=== PATIENT | female | born 1935 | race Caucasian/White ===

== ENCOUNTER 2019-06-29 12:38 | Outpatient (CLI) | payer MEDICARE, SELFPAY ==
[2019-06-29 13:31] LABS: Blood Urea Nitrogen 19 mg/dL (7-17); Calcium 9.3 mg/dL (8.4-10.2); Carbon Dioxide 30 mmol/L (22-30); Chloride 99 mmol/L (98-107); Cholesterol 205 mg/dL (0-200); Estimated Glomerular Filt Rate > 60; Glucose 95 mg/dL (65-105); HDL Direct 56 mg/dL; Potassium 4.3 mmol/L (3.4-5.0); Sodium 137 mmol/L (137-145); Triglycerides 124 mg/dL (<150)
[2019-06-29 13:42] LABS: LDL Cholesterol Direct 119 mg/dL
== END 2019-06-29 12:39 | disposition home or self-care (01) ==
PROVIDERS: PCP Internal Medicine; Visit Provider Internal Medicine
DX: I12.9 Hypertensive chronic kidney disease with stage 1 through stage 4 chronic kidney disease, or unspecified chronic kidney disease (principal); N18.3 Chronic kidney disease, stage 3 (moderate); E78.5 Hyperlipidemia, unspecified
CPT/HCPCS: 36415; 80048; 80061

== ENCOUNTER 2020-12-26 10:34 | Outpatient (CLI) | payer MEDICARE, SELFPAY ==
[2020-12-26 11:40] LABS: Alanine Aminotransferase 20 U/L (4-35); Albumin Level 3.8 g/dL (3.5-5.1); Alkaline Phosphatase 63 U/L (38-126); Anion Gap 5 mmol/L (8-16); Aspartate Amino Transferase 25 U/L (14-36); Blood Urea Nitrogen 18 mg/dL (7-17); Calcium 9.4 mg/dL (8.4-10.2); Carbon Dioxide 26 mmol/L (22-30); Chloride 106 mmol/L (98-107); Cholesterol 199 mg/dL (0-200); Estimated Glomerular Filt Rate 60; Glucose 102 mg/dL (65-110); HDL Direct 59 mg/dL; Potassium 4.3 mmol/L (3.4-5.0); Sodium 137 mmol/L (137-145); Triglycerides 112 mg/dL (<150)
[2020-12-26 11:51] LABS: LDL Cholesterol Direct 99 mg/dL
[2020-12-26 12:48] LABS: Vitamin D 25 Hydroxy 53.2 ng/mL
== END 2020-12-26 10:35 | disposition home or self-care (01) ==
LOC: ANHLAB 10:38
PROVIDERS: PCP Internal Medicine; Visit Provider Nurse Practitioner
DX: N18.30 Chronic kidney disease, stage 3 unspecified (principal); E78.5 Hyperlipidemia, unspecified; E55.9 Vitamin D deficiency, unspecified
CPT/HCPCS: 36415; 80053; 80061; 82306

== ENCOUNTER 2021-07-17 09:15 | Outpatient (CLI) | payer MEDICARE, SELFPAY ==
--- NOTE | ~2021-07-17 | XR_ITS ---
XR shoulder RT min 2V DATE: 07/17/2021 09:41 INDICATION: Right shoulder pain, limited range of motion TECHNIQUE: 4 views COMPARISON: None FINDINGS: There is prominent degenerative spurring at the, clavicular joint. There is prominent osteoarthritic change including spurring at the glenohumeral joint. The humeral head abuts the undersurface of the acromion process, consistent with rotator cuff atrophy and/or tear. Diffuse osteopenia. No fracture or dislocation, periosteal reaction or bone destruction. IMPRESSION: Severe degenerative change at the acromioclavicular and glenohumeral joints Right rotator cuff severe atrophy and/or tear Reviewed, dictated and finalized at location A. IMPRESSION: Severe degenerative change at the acromioclavicular and glenohumera l joints Right rotator cuff severe atrophy and/or tear
== END 2021-07-17 09:16 | disposition home or self-care (01) ==
PROVIDERS: PCP Internal Medicine; Visit Provider Internal Medicine
DX: M19.011 Primary osteoarthritis, right shoulder (principal); M75.101 Unspecified rotator cuff tear or rupture of right shoulder, not specified as traumatic
CPT/HCPCS: 73030

== ENCOUNTER 2021-09-03 09:00 | Outpatient (RCR) | payer MEDICARE, SELFPAY ==
[2021-07-22 12:34] VITALS: BP_SYST 96
--- NOTE | 2021-07-22 13:29 | PTOPEVAL ---
PHYSICAL THERAPY INITIAL EVALUATION. Thank you for referring Caro Meyers to [facility].? The patient is scheduled to be seen for therapy? 2x/week for 6 weeks. Please review, sign, date and return this plan of care OLGA. I agree with and certify that the following plan of care is medically necessary. Referring Physician Date Attending Provider: Arnav Díaz DO *PT Outpatient Evaluation Start: 07/22/21 Evaluation Information Diagnosis Right shoulder pain Subjective Information Pt states she has been having Query Text:As Reported By Patient/ some shoulder pain for about 6 Family -12 months. She declines a mechanism of injury. She states she enjoys needle work and painting. Pt declines pain in the shoulder, she states it just does not move the way that it shoulder. Pain Assessment Pain Score 0: Self Report Upper Extremity Range of Motion Scapular/ Shoulder Range of Motion Right Shoulder Flexion - Active 92 Shoulder Flexion - Passive 132 Shoulder Abduction - Active 81 Shoulder Abduction - Passive 96 Shoulder Medial Rotation - Passive 22 Shoulder Medial Rotation - Active R - L5 *pain reported Query Text:Reach Behind the Back L - T8 Shoulder Lateral Rotation - Passive 55 Shoulder Lateral Rotation - Active R - T1 Query Text:Reach Behind the Head L - T4 Scapular/Shoulder Range of Motion L shoulder active flexion 132 Comments L shoulder active abduction 130 passive rotation measure near 90 deg of shoulder abd Upper Extremity Muscle Strength Testing General Upper Extremity Strength L UE grossly 4- to 4/5 Scapular/Shoulder Right Shoulder Flexion Strength 4- Good - Shoulder Abduction Strength 3+ Fair + Shoulder Medial Rotation Strength 3+ Fair + Shoulder Lateral Rotation Strength 3+ Fair + Posture Shoulder Posture (R) Rounded,(R) Forward Palpation Assessment Palpation multiple pops felt during passive ROM, no increase in pain during PT Clinical Summary Caro is an active 85 y/o female who presents to therapy today with a diagnosis of R shoulder pain. Today she declines pain but reports stiffness and limitations with movement. She demonstrates decreased active ROM and strength when compared to her uninvolved side, she has
[2021-09-03 09:03] VITALS: BP_SYST 112
--- NOTE | 2021-09-03 09:42 | PTOPEVAL ---
PHYSICAL THERAPY PROGRESS REPORT AND DISCHARGE SUMMARY. Thank you for referring Caro Meyers to [facility].? The patient is scheduled to be discharged from therapy at this time. Please review, sign, date and return this plan of care OLGA. I agree with and certify that the following plan of care is medically necessary. Referring Physician Date Admitting Provider: Attending Provider: Arnav Díaz DO Assessment Status Discharge Evaluation Information Diagnosis Right shoulder pain Subjective Information Pt states her shoulder is Query Text:As Reported By Patient/ feeling good, but not perfect. Family Pt states she still has a little difficulty putting her curlers in her hair. Pt reports 50% improvement in overall symptoms, she states at her age who can expect to be normal. Pain Assessment Pain Score 0: Self Report Scapular/ Shoulder Range of Motion Right Shoulder Flexion - Active 102 Shoulder Flexion - Passive 144 Shoulder Abduction - Active 85 Shoulder Abduction - Passive 112 Shoulder Medial Rotation - Passive 50 Shoulder Medial Rotation - Active R - L2 *pain reported Query Text:Reach Behind the Back L - T8 Shoulder Lateral Rotation - Passive 65 Shoulder Lateral Rotation - Active R - T2 Query Text:Reach Behind the Head L - T4 Scapular/Shoulder Range of Motion L shoulder active flexion 132 Comments L shoulder active abduction 130 passive rotation measure near 90 deg of shoulder abd Upper Extremity Muscle Strength Testing Gross Upper Extremity Strength Comments L UE grossly 4- to 4/5 Scapular/Shoulder Right Shoulder Flexion Strength 4- Good - Shoulder Abduction Strength 3+ Fair + Shoulder Medial Rotation Strength 3+ Fair + Shoulder Lateral Rotation Strength 3+ Fair + Posture Posture Evaluation View Anterior Shoulder Posture (R) Rounded,(R) Forward Palpation Assessment Palpation multiple pops felt during passive ROM, no increase in pain during PT Clinical Summary Caro is an active 85 y/o female who presents to therapy today for a progress report following 8 visits of therapy to treat her R shoulder pain. Today she demonstrates mild improvements in her R shoulder strength and range of motion. She continues to lack range of motion and strength when
== END 2021-09-03 16:19 | disposition home or self-care (01) ==
LOC: ANHPT 09:00
PROVIDERS: PCP Internal Medicine; Visit Provider Internal Medicine
DX: M25.511 Pain in right shoulder (principal)
CPT/HCPCS: 97110; 97112; 97140; 97161

== ENCOUNTER 2022-03-05 13:28 | Outpatient (CLI) | payer MEDICARE, SELFPAY ==
[2022-03-05 14:33] LABS: Alanine Aminotransferase 21 U/L (6-35); Albumin Level 4.2 g/dL (3.5-5.1); Alkaline Phosphatase 84 U/L (38-126); Anion Gap 11 mmol/L (8-16); Aspartate Amino Transferase 27 U/L (14-36); Bilirubin,Total 0.6 mg/dL (0.2-1.3); Blood Urea Nitrogen 22 mg/dL (7-17); Calcium 9.6 mg/dL (8.4-10.2); Carbon Dioxide 30 mmol/L (22-30); Chloride 99 mmol/L (98-107); Estimated Glomerular Filt Rate 59; Glucose 106 mg/dL (65-110); Potassium 4.1 mmol/L (3.4-5.0); Sodium 140 mmol/L (137-145)
[2022-03-05 14:41] LABS: Vitamin D 25 Hydroxy 54.1 ng/mL
== END 2022-03-05 13:29 | disposition home or self-care (01) ==
PROVIDERS: PCP Internal Medicine; Visit Provider Internal Medicine
DX: E55.9 Vitamin D deficiency, unspecified (principal); I10 Essential (primary) hypertension
CPT/HCPCS: 36415; 80053; 82306

== ENCOUNTER 2022-09-10 13:36 | Outpatient (CLI) | payer MEDICARE, SELFPAY ==
[2022-09-10 14:40] LABS: Alanine Aminotransferase 20 U/L (6-35); Albumin Level 4.1 g/dL (3.5-5.1); Alkaline Phosphatase 85 U/L (38-126); Anion Gap 2 mmol/L (8-16); Aspartate Amino Transferase 24 U/L (14-36); Bilirubin,Total 0.8 mg/dL (0.2-1.3); Blood Urea Nitrogen 17 mg/dL (7-17); Calcium 8.9 mg/dL (8.4-10.2); Carbon Dioxide 33 mmol/L (22-30); Chloride 101 mmol/L (98-107); Cholesterol 186 mg/dL (0-200); Estimated Glomerular Filt Rate > 60; Glucose 111 mg/dL (65-110); HDL Direct 62 mg/dL; Potassium 4.3 mmol/L (3.4-5.0); Sodium 136 mmol/L (137-145); Triglycerides 178 mg/dL (<150)
[2022-09-10 14:51] LABS: LDL Cholesterol Direct 96 mg/dL
[2022-09-10 15:11] LABS: Vitamin D 25 Hydroxy 80.2 ng/mL
== END 2022-09-10 13:37 | disposition home or self-care (01) ==
LOC: ANHLAB 13:38
PROVIDERS: PCP Family Medicine; Visit Provider Nurse Practitioner
DX: I10 Essential (primary) hypertension (principal); Z51.81 Encounter for therapeutic drug level monitoring; E78.5 Hyperlipidemia, unspecified; E55.9 Vitamin D deficiency, unspecified
CPT/HCPCS: 36415; 80053; 80061; 82306

== ENCOUNTER 2022-11-04 19:35 | Emergency (ER) | payer MEDICARE, SELFPAY ==
--- NOTE | ~2022-11-04 | XR_ITS ---
EXAMINATION: XR chest 1V portable Exam Date/Time: 11/04/2022 20:17 CDT HISTORY: weakness, HTN Comparison: 08/10/2018. RESULT: Lines, tubes, and devices: None. Lungs and pleura: Senescent changes, calcified granulomas, bibasilar scar/atelectasis, otherwise neelima ar. Cardiomediastinal silhouette: Stable. Other: No acute osseous or upper abdominal finding. IMPRESSION: No acute cardiopulmonary process. Reviewed, dictated and finalized at location K.
--- NOTE | 2022-11-04 20:12 | ECG_ITS ---
Measurements Intervals [place] Rate: 84 P: 48 CT: 220 QRS: 34 QRSD: 90 T: 48 QT: 360 QTc: 426 Interpretive Statements SINUS RHYTHM WITH FIRST DEGREE AV BLOCK POSSIBLE LEFT ATRIAL ENLARGEMENT CANNOT RULE OUT SEPTAL INFARCT, AGE INDETERMINATE BASELINE ARTIFACT- III, AVR, AVF, V1 ABNORMAL ECG COMPARED TO ECG 08/10/2018 22:22:33 NO SIGNIFICANT CHANGES Electronically Signed On 11-04-2022 21:07:08 CDT by Trevor Valle D.O.
[2022-11-04] MEDS: SODIUM CHLORIDE 0.9% IV 1,000 ML 999 ML IV CONT (20:18)
[2022-11-04 20:41] LABS: Basophils Percent Auto 0.4 % (0.2-1.2); Eosinophils Absolute Auto 0.1 K/mm3 (0-0.3); Eosinophils Percent Auto 1.2 % (0-4.4); Hematocrit 40.2 % (37.0-47.0); Hemoglobin 13.4 g/dL (12.0-15.0); Immature Granulocyte Absolute 0.03 K/mm3 (0.00-0.031); Immature Granulocyte Percent A 0.4 % (0-0.5); Lymphocytes Absolute Auto 1.11 K/mm3 (0.9-3.2); Lymphocytes Percent Auto 13.2 % (18.3-44.2); Mean Corpuscular HGB Conc 33.3 g/dl (32-36); Mean Corpuscular Hemoglobin 31.8 pg (26-34); Mean Corpuscular Volume 95.3 fl (80-100); Mean Platelet Volume 9.1 fl (7.4-10.4); Monocytes Absolute Auto 0.8 K/mm3 (0.1-0.6); Monocytes Percent Auto 9.2 % (2.6-8.5); Neutrophils Absolute Auto 6.4 K/mm3 (1.3-6.7); Neutrophils Percent Auto 75.6 % (45.5-73.1); Platelet Count Result 231 k/mm3 (150-375); Red Blood Count 4.22 M/mm3 (4.2-5.4); Red Cell Distribution Width 13.2 % (11.5-14.5); White Blood Count 8.4 K/mm3 (4.5-10.0)
[2022-11-04 21:05] LABS: Appearance Urine Cloudy (Clear); Bacteria Urine 4+ /hpf; Bilirubin Urine Negative (Negative); Blood Urine Negative (Negative); Color Urine Yellow (Yellow); Glucose Urine UA Negative (Negative); Ketones Urine Negative (Negative); Leukocyte Esterase Ur 3+ LEU/UL (Negative); Nitrate Urine Positive (Negative); Non Pathogenic Casts 0-2; Protein Urine 1+ mg/dL (Negative); RBC Urine 0-2 /hpf (0-2); Specific Grav Ur 1.011 (1.001-1.035); Squamous Epithelial Cell Urine None seen /hpf (Few); Urobilinogen Urine 0.2 mg/dL (<2.0); pH Urine 6.5 (5.0-9.0)
[2022-11-04 21:06] LABS: Alanine Aminotransferase 23 U/L (6-35); Alkaline Phosphatase 86 U/L (38-126); Anion Gap 10 mmol/L (8-16); Aspartate Amino Transferase 29 U/L (14-36); Bilirubin,Total 0.7 mg/dL (0.2-1.3); Blood Urea Nitrogen 19 mg/dL (7-17); Calcium 9.2 mg/dL (8.4-10.2); Carbon Dioxide 26 mmol/L (22-30); Chloride 100 mmol/L (98-107); Estimated CRCL calculation 28 ml/min; Estimated Glomerular Filt Rate 59; Glucose 144 mg/dL (65-110); Magnesium 1.9 mg/dL (1.6-2.3); Sodium 136 mmol/L (137-145); Troponin I < 0.012 ng/mL (0.000-0.034)
[2022-11-04 21:14] LABS: Add Urine Microscopic? YES
--- NOTE | 2022-11-04 22:18 | ED.GENADULT ---
HPI - General Adult General Chief complaint: Weakness Stated complaint: GENERALIZED WEAKNESS Time Seen by Provider: 11/04/22 19:59 History of Present Illness HPI narrative: Is a 86-year-old female who presents the emergency department chief complaint of generalized weakness. Patient was sent in after she had had some ground-level falls and was little less steady on her feet. The patient currently has no complaints reports she is able to ambulate without difficulty denies chest pain or shortness of breath or denies fever. Related Data Home Medications Medication Instructions Recorded Confirmed aspirin 325 mg tablet 325 mg PO DAILY 06/20/19 09/10/22 calcium carbonate 600 mg calcium 600 mg PO BID 06/21/19 09/10/22 (1,500 mg) tablet (Calcium) glucosamine sulfate 500 mg tablet 500 mg PO BID 06/21/19 09/10/22 (Glucosamine) omega-3 fatty acids 1,000 mg 1,000 mg PO BID 06/21/19 09/10/22 capsule (Fish Oil Concentrate) cholecalciferol (vitamin D3) 10 10 mcg PO DAILY 08/19/21 09/10/22 mcg (400 unit) capsule Allergies Allergy/AdvReac Type Severity Reaction Status Date / Time No Known Allergies Allergy Verified 09/15/22 08:04 Review of Systems Review of Systems: A 10 system review of systems was completed on the patient and is negative except for what is stated in the HPI. Nursing and ancillary documentation was reviewed. [facility] Past Medical History Medical History Essential (primary) hypertension Hyperlipidemia Hypertension Vitamin D deficiency Surgical History Surgical History No significant past surgical history Family History Family History Mother Family history of transient ischemic attacks Patient's mother is Father Family history of Parkinson's disease Patient's father is Family history of alcoholism Social History Social History Smoking packs per day: 0.15 Smoking cigarettes per day: 3.0 Years smoked: 40 Smoking pack-years: 6.00 Smoking status: Current every day smoker Tobacco type: cigarettes Second hand tobacco smoke exposure: No Alcohol intake: never Substance use: never Lack of Transportation: No Lack of Food: Never True Current Housing: I Have Housing Concerned About Future Housing: No Difficulty Paying Gas/Electric Bills: No Difficulty Paying for Meds: No Currently Unemployed: No Education: High School Diploma/GED Difficulty w/ Childcare or Family Care: No Exam Narrative: GENERAL: Well-appearing, well-nourished, and in no acute distress. HEAD: Normocephalic, atraumatic. EYES: PERRLA and EOMI. ENT: Nares clear, no rhinorrhea or epistaxis. Mucous membranes moist. NECK: Supple. CHEST: Clear to auscultation. No respiratory distress. HEART: Regular rate and rhythm. No murmur heard. Normal peripheral pulses. ABDOMEN: Soft, nontender, nondistended, normal active bowel sounds. EXTREMITIES: Normal range of motion. No edema. SKIN: Warm, dry, no rash. NEURO: No focal deficits. Alert and oriented x3. PSYCH: Normal mood and affect. Medical Decision Making MDM Narrative Medical decision making narrative: Differential diagnosis includes electrolyte abnormality, dehydration, UTI Laboratory studies were obtained which showed normal CBC electrolytes within normal and slightly was 2.0 glucose is 144 liver enzymes were normal urinalysis showed 6-10 white blood cells in the urine 4+ bacteria 3+ leukocyte Estrace. Patient was also positive for nitrate. Patient will be started on Keflex for UTI Chest x-ray showed no evidence of focal Lab Data 11/04/22 20:34 11/04/22 20:34 Labs: Lab Results 11/04/22 11/04/22 Range/Units 20:34 20:52 WBC
== END 2022-11-04 22:40 | disposition home or self-care (01) ==
PROVIDERS: Emergency Provider Emergency Medicine; PCP Family Medicine
DX: N39.0 Urinary tract infection, site not specified (principal); R53.1 Weakness; I10 Essential (primary) hypertension; E78.5 Hyperlipidemia, unspecified; E55.9 Vitamin D deficiency, unspecified; Z79.82 Long term (current) use of aspirin; F17.210 Nicotine dependence, cigarettes, uncomplicated
CPT/HCPCS: 36415; 71045; 80053; 81001; 83605; 83735; 84484; 85025; 87077; 87086; 87186; 93005; 96360; 96361; 99284; J7030

== ENCOUNTER 2023-01-30 10:15 | Observation (INO) | payer MEDICARE, SELFPAY ==
[2023-01-30] VITALS (45 sets, daily range): BP systolic 104–216; BP diastolic 56–94; PULSE 65–92; RESP 15–24; TEMP 36.4–37; O2SAT 95–100; BMI 23.1
--- NOTE | ~2023-01-30 | US_ITS ---
EXAMINATION: US carotid duplex BI DATE: 01/31/2023 08:49 INDICATION: Syncope and cerebral atherosclerosis and stenosis. TECHNIQUE: Grayscale, color Doppler, and pulsed Doppler images of the cervical carotid arteries were obtained. The degree of vessel stenosis is placed in one of the following categories: normal, <50%, 5 0-69%, >=70% but less than near-occlusion, near-occlusion, or total occlusion. Note that percent sten osis relative to normal distal artery lumen diameter is indirectly measured from velocity measurement s as described by Fuad, et al. Radiology 2003; 229:340-346. COMPARISON: 08/11/2018 FINDINGS: RIGHT: The right common carotid artery (CCA) peak systolic velocity (PSV) is 73 cm/s. The right internal car otid artery (ICA) PSV is 82 cm/s. The right ICA end-diastolic velocity (EDV) is 12 cm/s. The right IC A/CCA PSV ratio is 1.1. Grayscale and color Doppler images yield an estimate of <50% diameter reducti on from plaque in the ICA. The external carotid artery (ECA) PSV is 116 cm/s. There is antegrade flow in the right vertebral artery. LEFT: The left CCA PSV is 72 cm/s. The left ICA PSV is 69 cm/s. The left ICA EDV is 17 cm/s. The left ICA/C CA PSV ratio is 0.9. Grayscale and color Doppler images yield an estimate of <50% diameter reduction from plaque in the ICA. The ECA PSV is 121 cm/s. There is antegrade flow in the left vertebral artery . IMPRESSION: 1. <50% stenosis in the right internal carotid artery. 2. <50% stenosis in the left internal carotid artery. Reviewed, dictated and finalized at location A.
--- NOTE | ~2023-01-30 | CT_ITS ---
EXAMINATION: CT brain wo con DATE: 01/30/2023 13:36 INDICATION: Syncope. TECHNIQUE: Computed tomography (CT) of the head was performed without intravenous contrast. The mA wa s adjusted according to patient size. Iterative reconstruction technique was employed. The dose-lengt h product was 605.33 mGy-cm. COMPARISON: Head CT 08/10/2018, brain MRI 08/11/2018 FINDINGS: There are old infarcts involving the bilateral basal ganglia, anterior limbs of the bilater al internal capsules, and left frontal lobe urias radiata. There is old infarct in the right thalamu s. There are scattered areas of low attenuation in the cerebral white matter. There is no intracrania l hemorrhage, acute infarction, or abnormal intracranial mass lesion. The ventricles are normal in si ze. There is mild mucosal thickening in the paranasal sinuses. There are bilateral mastoid effusions. IMPRESSION: 1. Old infarcts in the brain. 2. Worsened moderate nonspecific cerebral white matter disease, which likely represents chronic small vessel ischemic disease. Reviewed, dictated and finalized at location A. IMPRESSION: 1. Old infarcts in the brain. 2. Worsened moderate nonspecific cerebral white matter disease, which likely re presents chronic small vessel ischemic disease.
--- NOTE | ~2023-01-30 | CT_ITS ---
EXAMINATION: CTA chest PE protocol DATE: 01/30/2023 13:36 INDICATION: Syncope. TECHNIQUE: Computed tomography angiography (CTA) of the chest was performed with 100 mL Omnipaque-350 intravenous contrast timed to evaluate the pulmonary arteries. Coronal maximum intensity projection 3D-reconstructions were created by the technologist. Automated exposure control and iterative reconst ruction technique were employed. The dose-length product was 243.33 mGy-cm. COMPARISON: None. FINDINGS: The lungs demonstrate mild atelectasis. Calcified left lung nodules and calcified left terry r lymph nodes are consistent with old granulomatous disease. No pleural effusion. The heart size is n ormal. There are coronary artery calcifications. No pericardial effusion. There is no pulmonary embol us. Calcifications in the spleen are consistent with old granulomatous disease. 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 IMPRESSION: 1. No pulmonary embolus. Reviewed, dictated and finalized at location A. IMPRESSION: 1. No pulmonary embolus.
--- NOTE | ~2023-01-30 | XR_ITS ---
EXAMINATION: XR chest 1V portable DATE: 01/30/2023 11:03 INDICATION: Syncope. TECHNIQUE: A single frontal view of the chest was obtained. COMPARISON: Chest single view 11/04/2022 FINDINGS: Calcified left lung nodules and calcified left hilar lymph nodes are consistent with old gr anulomatous disease. There is mild atelectasis versus scarring at the lung bases. No pleural effusion or pneumothorax. The heart size is normal. IMPRESSION: 1. Mild atelectasis versus scarring at the lung bases. Reviewed, dictated and finalized at location A.
--- NOTE | 2023-01-30 10:27 | ECG_ITS ---
Measurements Intervals [place] Rate: 63 P: 40 WI: 214 QRS: 24 QRSD: 94 T: 54 QT: 387 QTc: 399 Interpretive Statements SINUS RHYTHM POSSIBLE ANTERIOR MYOCARDIAL INFARCTION , OF INDETERMINATE AGE Electronically Signed On 01-30-2023 13:02:58 CDT by Tucker Sandoval M.D.
--- NOTE | 2023-01-30 10:43 | ED.SYNCOPE ---
HPI - Syncope General Chief Complaint: Syncope Stated Complaint: syncope at [facility] Source: patient, EMS and RN notes reviewed Mode of arrival: EMS History of Present Illness HPI narrative: This is an 87 year old female with history of hypertension who presents for evaluation of syncope. EMS states patient was sitting in [facility] when the ladies next to her reported she slumped on her side. IT is reported that bystanders may have given a couple of chest compressions and patient woke up immediately. It is unknown if pulse was present. Patient states she has history of syncope multiple times in [facility]. She is unsure of her cause. She states she felt fine in [facility]. She denies chest pain, dizziness, shortness of breath, nausea, vomiting, back pain. Related Data Home Medications Medication Instructions Recorded Confirmed aspirin 325 mg tablet 325 mg PO DAILY 06/20/19 01/30/23 calcium carbonate 600 mg calcium 600 mg PO BID 06/21/19 01/30/23 (1,500 mg) tablet (Calcium) glucosamine sulfate 500 mg tablet 500 mg PO BID 06/21/19 01/30/23 (Glucosamine) omega-3 fatty acids 1,000 mg 1,000 mg PO BID 06/21/19 01/30/23 capsule (Fish Oil Concentrate) cholecalciferol (vitamin D3) 10 10 mcg PO DAILY 08/19/21 01/30/23 mcg (400 unit) capsule vit C 250 mg-vit E 90 mg-zinc 40 1 tablet PO BID 01/30/23 01/30/23 mg-copper 1 [id number] capsule (PreserVision AREDS-2) Allergies Allergy/AdvReac Type Severity Reaction Status Date / Time No Known Allergies Allergy Verified 01/30/23 10:27 Review of Systems Constitutional: Constitutional: Denies weakness Cardiovascular: Cardiovascular: Denies syncope, Denies rapid heart rate, Denies irregular heart rhythm, Denies leg edema and Denies dyspnea Respiratory: Respiratory: Denies chest congestion, Denies hemoptysis, Denies excessive phlegm production and Denies dyspnea Gastrointestinal: Gastrointestinal: Denies abdominal pain, Denies hematochezia, Denies diarrhea and Denies vomiting Genitourinary: Genitourinary: Denies hematuria and Denies dysuria Musculoskeletal: Musculoskeletal: Denies joint swelling, Denies loss of height and Denies muscle weakness Neurologic: Reports syncope, Denies focal weakness and Denies weakness PMFSH Past Medical History Medical History (Updated 01/30/23 @ 18:34 by Corina Bowers MD) Diverticulosis Hyperlipidemia Hypertension Vitamin D deficiency Surgical History Surgical History (Updated 01/30/23 @ 15:28 by Janice Mcnamara PA-C) History of colonoscopy History of hysterectomy Family History Family History Mother Family history of transient ischemic attacks Patient's mother is Father Family history of Parkinson's disease Patient's father is Family history of alcoholism Social History Social History (Updated 01/30/23 @ 15:29 by Janice Mcnamara PA-C) Social History: Healthcare power of trademark attorney: Issa Meyers, son. Code status: Full code. Smoking packs per day: 0.15 Smoking cigarettes per day: 3.0 Years smoked: 40 Smoking pack-years: 6.00 Smoking status: Former smoker Smokeless tobacco user: other Second hand tobacco smoke exposure: No Alcohol intake: never Substance use: never Substance use type: does not use Lack of Transportation: No Lack of Food: Never True Current Housing: I Have Housing Concerned About Future Housing: No Difficulty Paying Gas/Electric Bills: No Difficulty Paying for Meds: No Currently Unemployed: No Education: High School Diploma/GED Difficulty w/ Childcare or Family Care: No Spiritual care concerns: No Exam Const: General: no acute distress and alert Nutritional Appearance: well nourished Orientation/consciousness: patient oriented x3 HENMT: Head: normal to inspection Eyes: EOM: EOMs intact bilaterally Neck: Neck: normal visual inspection Chest: Chest pa
[2023-01-30 11:00] LABS: Basophils Percent Auto 0.4 % (0.2-1.2); Eosinophils Absolute Auto 0.1 K/mm3 (0-0.3); Eosinophils Percent Auto 1.3 % (0-4.4); Hematocrit 41.5 % (37.0-47.0); Hemoglobin 13.6 g/dL (12.0-15.0); Immature Granulocyte Absolute 0.04 K/mm3 (0.00-0.031); Immature Granulocyte Percent A 0.5 % (0-0.5); Lymphocytes Absolute Auto 1.08 K/mm3 (0.9-3.2); Lymphocytes Percent Auto 13.7 % (18.3-44.2); Mean Corpuscular HGB Conc 32.8 g/dl (32-36); Mean Corpuscular Hemoglobin 31.6 pg (26-34); Mean Corpuscular Volume 96.3 fl (80-100); Mean Platelet Volume 9.2 fl (7.4-10.4); Monocytes Absolute Auto 0.6 K/mm3 (0.1-0.6); Neutrophils Percent Auto 76.1 % (45.5-73.1); Platelet Count Result 197 k/mm3 (150-375); Red Blood Count 4.31 M/mm3 (4.2-5.4); Red Cell Distribution Width 13.3 % (11.5-14.5); White Blood Count 7.9 K/mm3 (4.5-10.0)
[2023-01-30 11:09] LABS: Alanine Aminotransferase 28 U/L (6-35); Albumin Level 3.8 g/dL (3.5-5.1); Alkaline Phosphatase 77 U/L (38-126); Anion Gap 3 mmol/L (8-16); Aspartate Amino Transferase 29 U/L (14-36); Bilirubin,Total 0.9 mg/dL (0.2-1.3); Blood Urea Nitrogen 19 mg/dL (7-17); Calcium 9.4 mg/dL (8.4-10.2); Carbon Dioxide 31 mmol/L (22-30); Chloride 100 mmol/L (98-107); Estimated CRCL calculation 35 ml/min; Estimated Glomerular Filt Rate > 60; Glucose 103 mg/dL (65-110); Magnesium 2.1 mg/dL (1.6-2.3); Potassium 4.4 mmol/L (3.4-5.0); Sodium 134 mmol/L (137-145)
[2023-01-30 11:20] LABS: Troponin I < 0.012 ng/mL (0.000-0.034)
[2023-01-30 12:10] LABS: INR 0.9; Prothrombin Time 12.8 Seconds (11.1-14.7)
--- NOTE | 2023-01-30 14:37 | PC.NURSE ---
called Issa, son/POA to update him on pt status and admission plans @[id number]
[2023-01-30 15:00] LABS: Troponin I < 0.012 ng/mL (0.000-0.034)
--- NOTE | 2023-01-30 15:16 | PM.IMHP ---
H&P: HPI History of Present Illness Date/Time: 01/30/23 16:30 Chief Complaint: Syncope. Narrative: This is an 87-year-old female with hypertension who presented to the emergency department via EMS from [facility] for evaluation after syncopal episode. The patient provides the following history. She was in her usual state of health this morning when she went to [facility]. A short time into the service she suddenly slumped over to the side and was unresponsive. It is reported that bystanders may have given her a couple of chest compressions when she went unresponsive however she woke up immediately; it is unknown if a pulse was present. She denies antecedent symptoms prior to the episode. Patient endorses a history of syncope for which she was hospitalized in July 2018. Workup was pretty unremarkable and it was felt that her syncope was related to orthostatic hypotension and dehydration. She denies recent illness, dizziness, chest pain, pleuritic pain, shortness a breath, nausea, vomiting, and sweats. She was afebrile on arrival to the ED. Blood pressures have been pretty consistent in the 160s to 180s systolic. CMP and CBC were pretty unremarkable aside from a mildly decreased sodium of 134. Troponin has been negative x2. EKG showed a sinus rhythm with normal DE interval, normal axis, and possible anterior NJ of indeterminate age. D-dimer was a bit elevated at 1.00 and a subsequent CTA of the chest was negative for pulmonary embolism. Brain CT showed no acute findings but did note old infarcts in worsening moderate nonspecific cerebral white matter disease. Chest x-ray showed nothing acute. She is being admitted for close monitoring and syncope workup. At the time my evaluation she feels just fine, has not had any recurrent episodes, and she has no current complaints. Review of Systems Review of Systems: Twelve systems were reviewed and are negative except for as per HPI. [facility] Past Medical History Medical History Diverticulosis Hyperlipidemia Hypertension Vitamin D deficiency Surgical History Surgical History History of colonoscopy History of hysterectomy Family History Family History Mother Family history of transient ischemic attacks Patient's mother is Father Family history of Parkinson's disease Patient's father is Family history of alcoholism Social History Social History Social History: Healthcare power of assistant prosecuting attorney: Issa Meyers, son. Code status: Full code. Smoking packs per day: 0.15 Smoking cigarettes per day: 3.0 Years smoked: 40 Smoking pack-years: 6.00 Smoking status: Former smoker Smokeless tobacco user: other Second hand tobacco smoke exposure: No Alcohol intake: never Substance use: never Substance use type: does not use Lack of Transportation: No Lack of Food: Never True Current Housing: I Have Housing Concerned About Future Housing: No Difficulty Paying Gas/Electric Bills: No Difficulty Paying for Meds: No Currently Unemployed: No Education: High School Diploma/GED Difficulty w/ Childcare or Family Care: No Spiritual care concerns: No Meds Home Medications and Allergies Home Medications Medication Instructions Recorded Confirmed Type aspirin 325 mg tablet 325 mg PO DAILY 06/20/19 01/30/23 History calcium carbonate 600 mg calcium 600 mg PO BID 06/21/19 01/30/23 History (1,500 mg) tablet (Calcium) glucosamine sulfate 500 mg tablet 500 mg PO BID 06/21/19 01/30/23 History (Glucosamine) omega-3 fatty acids 1,000 mg 1,000 mg PO BID 06/21/19 01/30/23 History capsule (Fish Oil Concentrate) cholecalciferol (vitamin D3) 10 10 mcg PO DAILY 08/19/21 01/30/23 History mcg (400 unit) capsule carvedilol
--- NOTE | 2023-01-30 16:15 | ADMGEN ---
This patient, Caro Meyers, was admitted to Medical Room [facility]- at 1615. Patient/family oriented to hospital policies and general routines including ID bracelet, bed and alarms, visiting hours, pain management, procedures, bathroom and other care routines, personal items, smoking policy, room service/diet, and visiting hours. Information on how to activate the Rapid Response Team has been discussed. Patient/Family are encouraged to report perceived risks to care and to ask questions if they do not understand what they are told or what they should do.
[2023-01-30] MEDS: carvediloL 25 MG TABLET BY MOUTH (21:56)
[2023-01-30] MEDS: NEOMYCIN/POLYMYXIN/HYDROCORT OT SUSP 10 ML BTL (*BKC) 4 DROP EACH EAR (21:57)
[2023-01-30] MEDS: lisinopriL 20 MG TABLET BY MOUTH (21:57)
[2023-01-31] VITALS (20 sets, daily range): BP systolic 119–156; BP diastolic 46–77; PULSE 65–94; RESP 17–20; TEMP 36.8; O2SAT 95–98
[2023-01-31 05:26] LABS: Basophils Percent Auto 0.4 % (0.2-1.2); Eosinophils Absolute Auto 0.1 K/mm3 (0-0.3); Eosinophils Percent Auto 1.6 % (0-4.4); Hematocrit 38.3 % (37.0-47.0); Hemoglobin 12.6 g/dL (12.0-15.0); Immature Granulocyte Absolute 0.02 K/mm3 (0.00-0.031); Immature Granulocyte Percent A 0.3 % (0-0.5); Lymphocytes Absolute Auto 1.42 K/mm3 (0.9-3.2); Lymphocytes Percent Auto 20.5 % (18.3-44.2); Mean Corpuscular HGB Conc 32.9 g/dl (32-36); Mean Corpuscular Hemoglobin 31.4 pg (26-34); Mean Corpuscular Volume 95.5 fl (80-100); Monocytes Absolute Auto 0.7 K/mm3 (0.1-0.6); Monocytes Percent Auto 9.5 % (2.6-8.5); Neutrophils Absolute Auto 4.7 K/mm3 (1.3-6.7); Neutrophils Percent Auto 67.7 % (45.5-73.1); Platelet Count Result 191 k/mm3 (150-375); Red Blood Count 4.01 M/mm3 (4.2-5.4); Red Cell Distribution Width 13.3 % (11.5-14.5); White Blood Count 6.9 K/mm3 (4.5-10.0)
[2023-01-31 05:37] LABS: Alanine Aminotransferase 27 U/L (6-35); Albumin Level 3.4 g/dL (3.5-5.1); Alkaline Phosphatase 71 U/L (38-126); Anion Gap 4 mmol/L (8-16); Aspartate Amino Transferase 27 U/L (14-36); Bilirubin,Total 0.8 mg/dL (0.2-1.3); Blood Urea Nitrogen 25 mg/dL (7-17); Carbon Dioxide 29 mmol/L (22-30); Chloride 100 mmol/L (98-107); Cholesterol 189 mg/dL (0-200); Estimated CRCL calculation 23 ml/min; Estimated Glomerular Filt Rate 47; Glucose 99 mg/dL (65-110); HDL Direct 57 mg/dL; Magnesium 2.2 mg/dL (1.6-2.3); Potassium 4.1 mmol/L (3.4-5.0); Sodium 133 mmol/L (137-145); Triglycerides 90 mg/dL (<150)
[2023-01-31 05:48] LABS: LDL Cholesterol Direct 92 mg/dL
[2023-01-31] MEDS: SODIUM CHLORIDE 0.9% IV 1,000 ML 100 ML IV CONT ×2 (10:01→20:31)
[2023-01-31] MEDS: ASPIRIN 325 MG TABLET PO (10:03)
[2023-01-31] MEDS: OPTI-GEN TAB 1 TABLET PO ×2 (10:03→18:23)
[2023-01-31] MEDS: lisinopriL 20 MG TABLET BY MOUTH ×2 (10:04→20:35)
[2023-01-31] MEDS: CHOLECALCIFEROL 400 UNITS TABLET (VIT D) PO (10:04)
[2023-01-31] MEDS: carvediloL 25 MG TABLET BY MOUTH ×2 (10:04→20:35)
[2023-01-31] MEDS: OMEGA 3 POLYUNSAT FATTY ACIDS 1 GM CAP PO ×2 (10:04→18:23)
[2023-01-31] MEDS: amLODIPine BESYLATE 5 MG TABLET BY MOUTH (10:04)
[2023-01-31] MEDS: CALCIUM CARBONATE (OSCAL) 500 MG TABLET PO ×2 (10:04→18:24)
--- NOTE | 2023-01-31 14:54 | PM.IMPN ---
Progress Note: A&P Assessment and Plan (1) Syncope: Code(s): R55 - Syncope and collapse Status: Acute Assessment and Plan: Etiology of the syncopal episode is not entirely clear. She was seated and denies antecedent symptoms which is concerning for cardiac dysrhythmia. It was previously documented in her chart that she had stenosis of a carotid artery however that is poorly documented. Monitored on telemetry. An echocardiogram ordered Carotid Doppler ultrasounds with less than 50% stenosis bilaterally Orthostatics remained negative Trops negative x2 (2) Hypertension: Code(s): I10 - Essential (primary) hypertension Status: Acute Assessment and Plan: continue home medication. Subjective Date/time seen: 01/31/23 14:54 Interval history: Patient feeling back to herself with no complaints at this time. She states that she does remember the event and that she has had syncopal episodes in the past and they are always in religious. Echocardiogram ordered. Exam Narrative: GENERAL: Comfortable, no acute distress HENMT: moist mucous membranes EYES: EOM intact b/l NECK: no lymphadenopathy RESPIRATORY: clear to auscultation CARDIO: RRR , murmur present GI: soft, nontender, bowel sounds present SKIN: no rashes EXTREMITIES: no edema, redness or tenderness Objective Data Vital Signs Vital Signs: Vital Signs - 24 hr 01/30/23 16:25 01/30/23 16:34 01/30/23 21:07 Temperature 97.5 F L 98.6 F Pulse Rate 77 92 Respiratory Rate 18 17 Blood Pressure 174/68 H 150/74 H Pulse Oximetry 99 96 Oxygen Delivery Room Air 01/30/23 21:56 01/30/23 20:00 01/30/23 20:00 Temperature Pulse Rate 92 82 Respiratory Rate Blood Pressure Pulse Oximetry Oxygen Delivery Room Air 01/31/23 00:00 01/31/23 04:50 01/31/23 05:40 Temperature 98.3 F 98.3 F Pulse Rate 69 73 73 Respiratory Rate 17 17 Blood Pressure 154/53 H 154/53 H Pulse Oximetry 96 96 Oxygen Delivery 01/31/23 04:53 01/31/23 04:58 01/31/23 04:00 Temperature 98.3 F 98.3 F Pulse Rate 73 84 65 Respiratory Rate 17 18 Blood Pressure 130/46 L 119/52 L Pulse Oximetry 98 97 Oxygen Delivery 01/31/23 09:32 01/31/23 09:36 01/31/23 09:40 Temperature Pulse Rate 67 72 78 Respiratory Rate Blood Pressure 150/57 H 156/64 H 142/66 H Pulse Oximetry Oxygen Delivery 01/31/23 10:04 01/31/23 08:00 01/31/23 14:00 Temperature 98.3 F Pulse Rate 78 71 Respiratory Rate 20 Blood Pressure 131/63 Pulse Oximetry 97 Oxygen Delivery Room Air Intake/Output Intake/Output: Intake & Output 01/28/23 01/29/23 01/30/23 01/31/23 23:59 23:59 23:59 23:59 Intake Total 240 480 Balance 240 480 Meds/Results Medications: Active Medications Generic Name Dose Route Start Last Admin Trade Name Freq PRN Reason Stop Dose Admin Acetaminophen 650 mg 01/30/23 15:31 Acetaminophen 325 Mg Tablet PO Q6H PRN Mild Pain (1-3) or Fever Amlodipine Besylate 5 mg 01/31/23 09:00 01/31/23 10:04 Amlodipine Besylate 5 Mg Tablet BY MOUTH 5 mg DAILY DENISE Administration Aspirin 325 mg 01/31/23 09:00 01/31/23 10:03 Aspirin 325 Mg Tablet PO 325 mg DAILY DENISE Administration Calcium Carbonate 500 mg 01/31/23 09:00 01/31/23 10:04 Calcium Carbonate (Oscal) 500 Mg Tablet PO 03/02/23 08:59 500 mg BID DENISE Administration Carvedilol 25 mg 01/30/23 21:00 01/31/23 10:04 Carvedilol 25 Mg Tablet BY MOUTH 25 mg Q12HR DENISE Administration Carvedilol 12.5 mg 01/31/23 21:00 Carvedilol 12.5 Mg Tablet BY MOUTH [facility] Fish Oil 1 gm 01/31/23 09:00 01/31/23 10:04 Sidell 3 Polyunsat Fatty Acids 1 Gm Cap PO 1 gm BID DENISE Administration Sodium Chloride 1,000 mls @ 100 mls/hr 01/31/23 08:15 01/31/23 10:01 Normal Saline Iv IV CONT 100 mls/hr .Q10H DENISE Administration Lisinopril 20 mg 01/30/23 21:00 01/31/23 10:04 L
[2023-01-31] MEDS: NEOMYCIN/POLYMYXIN/HYDROCORT OT SUSP 10 ML BTL (*BKC) 4 DROP EACH EAR (20:35)
[2023-01-31] MEDS: carvediloL 12.5 MG TABLET BY MOUTH (20:35)
[2023-02-01] VITALS (9 sets, daily range): BP systolic 140–163; BP diastolic 50–68; PULSE 67–84; RESP 16–17; TEMP 36.4–37; O2SAT 95–96
[2023-02-01 05:56] LABS: Hematocrit 35.2 % (37.0-47.0); Hemoglobin 11.3 g/dL (12.0-15.0); Mean Corpuscular HGB Conc 32.1 g/dl (32-36); Mean Corpuscular Hemoglobin 31.6 pg (26-34); Mean Corpuscular Volume 98.3 fl (80-100); Platelet Count Result 160 k/mm3 (150-375); Red Blood Count 3.58 M/mm3 (4.2-5.4); Red Cell Distribution Width 13.5 % (11.5-14.5); White Blood Count 5.6 K/mm3 (4.5-10.0)
[2023-02-01 06:08] LABS: Alanine Aminotransferase 24 U/L (6-35); Alkaline Phosphatase 58 U/L (38-126); Anion Gap 2 mmol/L (8-16); Aspartate Amino Transferase 25 U/L (14-36); Bilirubin,Total 0.9 mg/dL (0.2-1.3); Blood Urea Nitrogen 21 mg/dL (7-17); Calcium 8.4 mg/dL (8.4-10.2); Carbon Dioxide 25 mmol/L (22-30); Chloride 107 mmol/L (98-107); Estimated CRCL calculation 28 ml/min; Estimated Glomerular Filt Rate 59; Glucose 91 mg/dL (65-110); Potassium 4.5 mmol/L (3.4-5.0); Sodium 134 mmol/L (137-145)
[2023-02-01] MEDS: SODIUM CHLORIDE 0.9% IV 1,000 ML 100 ML IV CONT (06:39)
[2023-02-01] MEDS: amLODIPine BESYLATE 5 MG TABLET BY MOUTH (08:39)
[2023-02-01] MEDS: ASPIRIN 325 MG TABLET PO (08:39)
[2023-02-01] MEDS: OPTI-GEN TAB 1 TABLET PO (08:39)
[2023-02-01] MEDS: carvediloL 25 MG TABLET BY MOUTH (08:39)
[2023-02-01] MEDS: OMEGA 3 POLYUNSAT FATTY ACIDS 1 GM CAP PO (08:39)
[2023-02-01] MEDS: lisinopriL 20 MG TABLET BY MOUTH (08:39)
[2023-02-01] MEDS: CHOLECALCIFEROL 400 UNITS TABLET (VIT D) PO (08:39)
[2023-02-01] MEDS: CALCIUM CARBONATE (OSCAL) 500 MG TABLET PO (08:39)
--- NOTE | 2023-02-01 13:21 | PM.DS ---
DS: Admitting Diagnosis Discharge Date 02/01/23 Admitting Diagnosis syncope DS: Discharge Diagnosis Discharge Diagnosis (1) Syncope: Code(s): R55 - Syncope and collapse Status: Acute (2) Hypertension: Code(s): I10 - Essential (primary) hypertension Status: Acute DS: Summary Hospital Course Hospital Course: This is an 87-year-old female with past medical history of hypertension, CKD, hyperlipidemia and CVA the present to the ED on 01/30/2023 after syncopal episode in catholic. Patient does have a history of syncope and states that it always happens in catholic while she is sitting. Patient did have chest compressions done when she went unresponsive although she woke up immediately when the compression started. Workup was unremarkable. Patient did not have any positive orthostatics, head CT revealed old infarcts but no acute intracranial process carotid Dopplers less than 50% stenosis bilaterally, CTA of the chest with no PE present. Concern for cardiac arrhythmia and patient was monitored on telemetry although no events were recorded. Echocardiogram with EF greater than 70% and grade 1 diastolic dysfunction. Patient has no complaints and states that she has never felt bad. It is advised that she follow-up with her PCP. Her labs and vital signs are stable she is medically clear for discharge at this time. Time Spent with Patient Time attestation: Total time spent providing and/or coordinating discharge services: Exam Narrative: GENERAL: Comfortable, no acute distress HENMT: moist mucous membranes EYES: EOM intact b/l NECK: no lymphadenopathy RESPIRATORY: clear to auscultation CARDIO: RRR , murmur present GI: soft, nontender, bowel sounds present SKIN: no rashes EXTREMITIES: no edema, redness or tenderness DS: Data Data Completed and Pending Labs on day of discharge: Labs from last 24 hours 02/01/23 05:16 WBC 5.6 RBC 3.58 L Hgb 11.3 L Hct 35.2 L MCV 98.3 MCH 31.6 MCHC 32.1 RDW 13.5 Plt Count 160 MPV 9.0 Sodium 134 L Potassium 4.5 Chloride 107 Carbon Dioxide 25 Anion Gap 2 L BUN 21 H Creatinine 0.90 Estim Creat Clear Calc 28 Estimated GFR 59 Glucose 91 Calcium 8.4 Total Bilirubin 0.9 AST 25 ALT 24 Alkaline Phosphatase 58 Total Protein 5.0 L Albumin 3.0 L Discharge Plan Discharge Attending physician on discharge: Bashir Delgado Discharging Clinician: Deb Covarrubias Patient Disposition: Home, Self-Care Activity: as tolerated Diet: heart healthy Discharge Instructions: When to seek care: You sudden chest pain You have trouble breathing or shortness of breath He has vision changes or sweating Given nausea while your leg or sitting If you will flush in your heart is fluttering You faint Prevention: Stand up slowly Sit on side of the bed or couch for a few minutes before you stand up Take slow deep breaths when you feel lightheaded Discharge disposition: Take medications as prescribed Monitor blood pressures Avoid social areas, you wear a mask when in social settings Encouraged to continue with yearly vaccinations Return to the emergency department if he developed sudden shortness of breath, chest pain, nausea, vomiting, upset stomach or intractable diarrhea Return to the emergency department if you develop fever greater than 100.4 Follow-up with the primary care physician within 1-2 weeks Thank you for [facility] for your healthcare needs Patient Instructions: Antibiotic Form, Syncope (DC), Pain Management (DC) Stand Alone Forms: General Discharge Information Follow-up/Referrals: Chay Gray APRN [Primary Care Provider] - Discharge Medications: New carvedilol [Coreg] 25 mg Tablet 25 mg BYMOUTH Q12HR Qty: 30 0RF carvedilol [Coreg] 12.5 mg Tablet 12.5 mg BYMOUTH HS Qty: 30 0RF Continued aspirin 325 mg tablet 325 mg PO DAILY omega-3 fatt
--- NOTE | 2023-02-01 15:31 | ECHO_ITS ---
Patient Info Name: Caro Meyers Age: 87 years : 1935 Gender: Female Ht: 60 in Wt: 123 lbs BSA: 1.55 m2 HR: 80 bpm BP: 140 / 50 mmHg Heart Rhythm: Sinus Rhythm Technical Quality: Good Exam Date: 02/01/2023 7:49 AM Exam Location: [facility] Patient Status: Inpatient Admit Date: 01/30/2023 Staff Ordering Physician: Janice Mcnamara PA-C Channel Process Supervisor: Nohemi Polanco RDCS Attending Provider: Bashir Delgado MD Referring Physician: Naima JOAQUIN; Exam Type: CA echo doppler color flow Study Info Indications I10 - Essential (primary) hypertension R55 - Syncope and collapse Complete two-dimensional, color flow and Doppler transthoracic echocardiogram is performed. Summary 1. Complete two-dimensional, color flow and Doppler transthoracic echocardiogram is performed. 2. Left ventricular chamber dimension is normal. 3. Left ventricular systolic function is hyperdynamic, estimated at >70%. 4. There is mild concentric increased left ventricular wall thickness. 5. The left ventricular diastolic function is grade I diastolic dysfunction. 6. E/e' 22 is elevated. 7. There is mild aortic valve sclerosis. 8. No pulmonary hypertension, estimated pulmonary arterial systolic pressure is 27 mmHg. 9. There is trace pulmonic regurgitation. Left Ventricle E/e' 22 is elevated. Left ventricular chamber dimension is normal. Left ventricular systolic function is hyperdynamic, estimated at >70%. There is mild concentric increased left ventricular wall thickness. The left ventricular diastolic function is grade I diastolic dysfunction. Right Ventricle Right ventricular systolic function is normal and with normal TAPSE 2.6 cm. Right ventricular chamber dimension is normal. Left Atria Left atrial chamber dimension is normal. Right Atria Right atrial chamber dimension is normal. Aortic Valve The aortic valve is trileaflet. There is mild aortic valve sclerosis. There is no aortic valve stenosis. There is no aortic valve regurgitation. Pulmonic Valve There is trace pulmonic regurgitation. Mitral Valve There is no mitral valve stenosis. There is no mitral valve regurgitation. Tricuspid Valve There is no tricuspid valve regurgitation. No pulmonary hypertension, estimated pulmonary arterial systolic pressure is 27 mmHg. Pericardium/Pleural There is no pericardial effusion. Inferior Vena Cava Normal inferior vena cava with >50% collapse upon inspiration consistent with normal right atrial pressure, 5 mmHg. Aorta The aortic root size at the sinus of Valsalva is normal. Left Ventricular Outflow Tract Name Value Normal LVOT 2D LVOT Diameter 2.0 cm LVOT Doppler LVOT Peak Gradient 8 mmHg LVOT Mean Gradient 5 mmHg LVOT VTI 33 cm LVOT VTI/AV VTI Ratio 0.9 LVOT Stroke Volume 101 ml LVOT CO 7.0 l/min LVOT CI 4.5 l/min/m2 Pulmonic Valve Name Value Normal -----
== END 2023-02-01 15:03 | disposition home or self-care (01) ==
LOC: ANHED 10:26 → ANH2MED 15:43
PROVIDERS: Internal Medicine Critical Care Medicine; Admitting Provider Internal Medicine; Emergency Provider General Practice; PCP Nurse Practitioner; Visit Provider Internal Medicine
DX: R55 Syncope and collapse (principal); I11.9 Hypertensive heart disease without heart failure; R91.8 Other nonspecific abnormal finding of lung field; R01.1 Cardiac murmur, unspecified; I35.8 Other nonrheumatic aortic valve disorders; E78.5 Hyperlipidemia, unspecified; E55.9 Vitamin D deficiency, unspecified; R90.82 White matter disease, unspecified; Z87.891 Personal history of nicotine dependence; Z86.73 Personal history of transient ischemic attack (TIA), and cerebral infarction without residual deficits; Z79.82 Long term (current) use of aspirin; Z79.52 Long term (current) use of systemic steroids; Z79.899 Other long term (current) drug therapy
CPT/HCPCS: 36415; 70450; 71045; 71275; 80053; 80061; 83735; 84484; 85025; 85027; 85380; 85610; 85730; 93005; 93306; 93880; 96360; 96361; 99285; A9270; G0378; J7030; Q9967

== ENCOUNTER 2023-03-28 15:04 | Observation (INO) | payer MEDICARE, SELFPAY ==
[2023-03-28] VITALS (12 sets, daily range): BP systolic 169–193; BP diastolic 69–75; PULSE 79–93; RESP 17–24; TEMP 36.1–36.4; O2SAT 97–100; BMI 22.6
--- NOTE | ~2023-03-28 | XR_ITS ---
EXAMINATION: XR chest 1V DATE: 03/28/2023 18:00 INDICATION: Near syncopal episode with hypertension TECHNIQUE: frontal view of the chest was obtained. COMPARISON: Chest radiograph and CT dated 01/30/2023 FINDINGS: Calcified nodule at the left lung base consistent with old granulomatous disease. Costochondral calci fic lesions projecting over both lung bases. No focal airspace opacities, pulmonary edema, pleural ef fusion or pneumothorax. The cardiomediastinal silhouette is normal. Right rotator cuff arthropathy. IMPRESSION: 1. No acute cardiopulmonary disease. Reviewed, dictated and finalized at location A. ITAL PHARMACY TECHNICIAN
--- NOTE | ~2023-03-28 | CT_ITS ---
EXAMINATION: CT brain wo con DATE: 03/28/2023 17:38 INDICATION: Syncope with head injury TECHNIQUE: Computed tomography (CT) of the head was performed without intravenous contrast. Sagittal and coronal reconstructions were performed. The mA was adjusted according to patient size. Iterative reconstruction technique was employed. The dose-length product was 605.33 mGy-cm. COMPARISON: head CT dated 01/30/2023 FINDINGS: No fracture. Again seen are old lacunar infarcts at the bilateral basal ganglia, the anterior limbs o f the bilateral internal capsules and the left frontoparietal urias radiata. There is also an old la cunar infarct at the right thalamus. No acute intracranial hemorrhage, acute infarction or abnormal e xtra axial fluid collection. There is moderate scattered white matter hypoattenuation consistent with chronic small vessel ischemic disease. Symmetric prominence of the sulci consistent with mild age-ap propriate diffuse cerebral volume loss. Ventricles are normal and symmetric. No mass/mass effect. Sunita nges of bilateral intraocular lens replacement. The orbitsand paranasal sinuses are normal. Unchanged small bilateral mastoid effusions. IMPRESSION: 1. No fracture or acute intracranial process. 2. Stable appearance of bilateral old infarcts and moderate scattered white matter hypoattenuation co nsistent with chronic small vessel ischemic disease. Reviewed, dictated and finalized at location A. ERMAN IMPRESSION: 1. No fracture or acute intracranial process. 2. Stable appearance of bilateral old infarcts and moderate scattered white mat ter hypoattenuation consistent with chronic small vessel ischemic disease.
--- NOTE | 2023-03-28 15:52 | ECG_ITS ---
Measurements Intervals [place] Rate: 78 P: 56 VT: 221 QRS: 46 QRSD: 89 T: 62 QT: 372 QTc: 425 Interpretive Statements SINUS RHYTHM WITH FIRST DEGREE AV BLOCK WITH OCCASIONAL VENTRICULAR PREMATURE COMPLEXES LEFT ATRIAL ENLARGEMENT [-0.15mV P WAVE IN V1/V2] DELAYED R-WAVE PROGRESSION ABNORMAL ECG COMPARED TO ECG 01/30/2023 10:33:47 FIRST DEGREE AV BLOCK NOW PRESENT Electronically Signed On 03-29-2023 16:50:57 TRAVEL AGENCY MANAGER by Jose Alberto Gee M.D.
[2023-03-28 16:42] LABS: Basophils Percent Auto 0.4 % (0.2-1.2); Eosinophils Absolute Auto 0.3 K/mm3 (0-0.3); Eosinophils Percent Auto 4.1 % (0-4.4); Hematocrit 45.2 % (37.0-47.0); Hemoglobin 14.4 g/dL (12.0-15.0); Immature Granulocyte Absolute 0.03 K/mm3 (0.00-0.031); Immature Granulocyte Percent A 0.4 % (0-0.5); Lymphocytes Absolute Auto 1.33 K/mm3 (0.9-3.2); Lymphocytes Percent Auto 18.1 % (18.3-44.2); Mean Corpuscular HGB Conc 31.9 g/dl (32-36); Mean Corpuscular Hemoglobin 30.8 pg (26-34); Mean Corpuscular Volume 96.8 fl (80-100); Mean Platelet Volume 8.7 fl (7.4-10.4); Monocytes Absolute Auto 0.6 K/mm3 (0.1-0.6); Monocytes Percent Auto 8.3 % (2.6-8.5); Neutrophils Absolute Auto 5.1 K/mm3 (1.3-6.7); Neutrophils Percent Auto 68.7 % (45.5-73.1); Platelet Count Result 217 k/mm3 (150-375); Red Blood Count 4.67 M/mm3 (4.2-5.4); Red Cell Distribution Width 13.2 % (11.5-14.5); White Blood Count 7.4 K/mm3 (4.5-10.0)
[2023-03-28 16:55] LABS: Alanine Aminotransferase 27 U/L (6-35); Albumin Level 4.4 g/dL (3.5-5.1); Alkaline Phosphatase 104 U/L (38-126); Anion Gap 4 mmol/L (8-16); Aspartate Amino Transferase 33 U/L (14-36); Bilirubin,Total 0.7 mg/dL (0.2-1.3); Blood Urea Nitrogen 14 mg/dL (7-17); Calcium 9.2 mg/dL (8.4-10.2); Carbon Dioxide 31 mmol/L (22-30); Chloride 98 mmol/L (98-107); Estimated Glomerular Filt Rate > 60; Glucose 179 mg/dL (65-110); Potassium 4.2 mmol/L (3.4-5.0); Sodium 133 mmol/L (137-145)
--- NOTE | 2023-03-28 17:26 | ED.DIZZY ---
HPI - Dizziness General Chief Complaint: Dizziness <Bari Lyon PA-C - Last Filed: 03/29/23 01:08> Stated Complaint: NEAR SYNCOPY <Bari Lyon PA-C - Last Filed: 03/29/23 01:08> Time Seen by Provider: 03/28/23 16:58 <Bari Lyon PA-C - Last Filed: 03/29/23 01:08> Source: patient <Bari Lyon PA-C - Last Filed: 03/29/23 01:08> Mode of arrival: ambulatory <Bari Lyon PA-C - Last Filed: 03/29/23 01:08> Limitations: no limitations <Bari Lyon PA-C - Last Filed: 03/29/23 01:08> History of Present Illness HPI Narrative: This is an 87-year-old female with PMH of hypertension who presents to the ED via EMS with chief complaint of syncopal episode occurring today. patient reports that she was out today playing cards when she became lightheaded. She says she nearly passed out but does not feel that she fully passed out. Denies any preceding chest pain or shortness of breath. She states she is currently asymptomatic. Denies chest pain, shortness of breath, palpitations, leg swelling, abdominal pain, nausea, vomiting , headache or any recent illness. states she has had 1 episode of this in the past several months ago. <Bari Lyon PA-C - Last Filed: 03/29/23 01:08> Related Data Home Medications: Home Medications Medication Instructions Recorded Confirmed aspirin 325 mg tablet 325 mg PO DAILY 06/20/19 03/28/23 calcium carbonate 600 mg calcium 600 mg PO BID 06/21/19 03/28/23 (1,500 mg) tablet (Calcium) glucosamine sulfate 500 mg tablet 500 mg PO BID 06/21/19 03/28/23 (Glucosamine) omega-3 fatty acids 1,000 mg 1,000 mg PO BID 06/21/19 03/28/23 capsule (Fish Oil Concentrate) cholecalciferol (vitamin D3) 10 10 mcg PO DAILY 08/19/21 03/28/23 mcg (400 unit) capsule vit C 250 mg-vit E 90 mg-zinc 40 1 tablet PO BID 01/30/23 03/28/23 mg-copper 1 [id number] capsule (PreserVision AREDS-2) amlodipine 5 mg tablet 5 mg PO DAILY 03/28/23 03/28/23 carvedilol 25 mg tablet 37.5 mg PO QHS 03/28/23 03/28/23 carvedilol 25 mg tablet (Coreg) 25 mg BYMOUTH QAM 03/28/23 03/28/23 lisinopril 20 mg tablet 20 mg PO BID 03/28/23 03/28/23 <Bari Lyon PA-C - Last Filed: 03/29/23 01:08> Allergies/Adverse Reactions: Allergies Allergy/AdvReac Type Severity Reaction Status Date / Time No Known Allergies Allergy Verified 03/24/23 08:24 <Bari Lyon PA-C - Last Filed: 03/29/23 01:08> Review of Systems Review of Systems: All systems as dictated in HPI <Bari Lyon PA-C - Last Filed: 03/29/23 01:08> [facility] Past Medical History Medical History: Medical History Diverticulosis Hyperlipidemia Hypertension Vitamin D deficiency <Bari Lyon PA-C - Last Filed: 03/29/23 01:08> Surgical History Surgical History: Surgical History History of colonoscopy History of hysterectomy <Bari Lyon PA-C - Last Filed: 03/29/23 01:08> Family History Family History: Family History (Reviewed 03/24/23 @ 08:42 by Tiffanie Davis [facility] [address]) Mother Family history of transient ischemic attacks Patient's mother is Father Family history of Parkinson's disease Patient's father is Family history of alcoholism <Bari Lyon PA-C - Last Filed: 03/29/23 01:08> Social History Social History: Social History (Reviewed 03/24/23 @ 08:42 by Tiffanie Davis [facility]) Social History: Healthcare power of disability attorney: Issa Meyers, son. Code status: Full code. Smoking packs per day: 0.5 Smoking cigarettes per day: 10.0 Years smoked: 40 Smoking pack-years: 20.00 Smoking status: Current every day smoker Tobacco type: cigarettes Smokeless tobacco user: other Second hand tobacco smoke exposure: No Alcohol intake: never Substance use: never Substance use type: does not use Lack o
[2023-03-28 18:37] LABS: Appearance Urine Clear (Clear); Bacteria Urine 1+ /hpf; Bilirubin Urine Negative (Negative); Blood Urine Negative (Negative); Color Urine Yellow (Yellow); Glucose Urine UA Negative (Negative); Ketones Urine Negative (Negative); Leukocyte Esterase Ur Trace LEU/UL (Negative); Need Manual Microscopic Reviewed; Nitrate Urine Negative (Negative); Non Pathogenic Casts 0-2; Protein Urine Negative (Negative); RBC Urine 0-2 /hpf (0-2); Specific Grav Ur 1.004 (1.001-1.035); Squamous Epithelial Cell Urine None seen /hpf (Few); Urobilinogen Urine 0.2 mg/dL (<2.0); WBC Urine 0-5 /hpf
[2023-03-28 18:39] LABS: Add Urine Microscopic? YES
[2023-03-28 19:03] LABS: Troponin I < 0.012 ng/mL (0.000-0.034)
--- NOTE | 2023-03-28 19:34 | PM.IMHP ---
H&P: HPI History of Present Illness Date/Time: 03/28/23 19:34 Chief Complaint: Syncope Narrative: This is an 87-year-old female with past medical history significant for hypertension, dyslipidemia, diverticulosis, DJD. Patient was playing cards when she had a syncopal episode. Patient has no recollection of event. Preliminary workup has been essentially nonrevealing. Patient has been her usual state of health up until this point denies any chest pain, palpitations, shortness of breath, cough, sputum production, no leg swelling, no PND, no orthopnea, no lightheadedness, no nausea no vomiting no abdominal pain no diarrhea, no fevers no rigors no chills. Patient has been placed in observation for further evaluation management and treatment. EXAMINATION: CT brain wo con DATE: 03/28/2023 17:38 INDICATION: Syncope with head injury TECHNIQUE: Computed tomography (CT) of the head was performed without intravenous contrast. Sagittal and coronal reconstructions were performed. The mA was adjusted according to patient size. Iterative reconstruction technique was employed. The dose-length product was 605.33 mGy-cm. COMPARISON: head CT dated 01/30/2023 FINDINGS: No fracture. Again seen are old lacunar infarcts at the bilateral basal ganglia, the anterior limbs of the bilateral internal capsules and the left frontoparietal urias radiata. There is also an old lacunar infarct at the right thalamus. No acute intracranial hemorrhage, acute infarction or abnormal extra axial fluid collection. There is moderate scattered white matter hypoattenuation consistent with chronic small vessel ischemic disease. Symmetric prominence of the sulci consistent with mild age-appropriate diffuse cerebral volume loss. Ventricles are normal and symmetric. No mass/mass effect. Changes of bilateral intraocular lens replacement. The orbitsand paranasal sinuses are normal. Unchanged small bilateral mastoid effusions. IMPRESSION: 1. No fracture or acute intracranial process. 2. Stable appearance of bilateral old infarcts and moderate scattered white matter hypoattenuation consistent with chronic small vessel ischemic disease. EXAMINATION: XR chest 1V DATE: 03/28/2023 18:00 INDICATION: Near syncopal episode with hypertension TECHNIQUE: frontal view of the chest was obtained. COMPARISON: Chest radiograph and CT dated 01/30/2023 FINDINGS: Calcified nodule at the left lung base consistent with old granulomatous disease. Costochondral calcific lesions projecting over both lung bases. No focal airspace opacities, pulmonary edema, pleural effusion or pneumothorax. The cardiomediastinal silhouette is normal. Right rotator cuff arthropathy. IMPRESSION: 1. No acute cardiopulmonary disease. Review of Systems Review of Systems: Syncope Constitutional: Constitutional: Denies chills, Denies fatigue, Denies fever(s), Denies frequent falls, Denies malaise, Denies night sweats, Denies poor appetite and Denies weakness Eyes: Eyes: Denies change in vision ENT: Denies dysphagia, Denies vertigo, Denies dizziness, Denies odynophagia and Denies disequilibrium Cardiovascular: Cardiovascular: Denies chest pain, Reports syncope, Denies leg edema, Denies lightheadedness and Denies palpitations Respiratory: Respiratory: Denies cough Gastrointestinal: Gastrointestinal: Denies abdominal pain, Denies dyspepsia, Denies heartburn, Denies diarrhea, Denies nausea and Denies vomiting Genitourinary: Genitourinary: Denies dysuria Musculoskeletal: Musculoskeletal: Denies back pain and Denies arthralgias Integumentary/Breasts: Skin/Breast: Denies rash Neurologic: Denies abnormal gait, Denies vertigo, Denies dizziness, Denies focal weakness and Denies Sensory deficit (Neuro) Psychiatric: Psychiatric: Reports no additional psychiatric complaints and Reports as per HPI Endocrine: Endocrine: Denies cold intolerance, Denies fatigue, Denies flushing, Denies heat intolerance, De
--- NOTE | 2023-03-28 21:08 | ADMGEN ---
This patient, Caro Meyers, was admitted to Medical Room 253-01. Patient/family oriented to hospital policies and general routines including ID bracelet, bed and alarms, visiting hours, pain management, procedures, bathroom and other care routines, personal items, smoking policy, room service/diet, and visiting hours. Information on how to activate the Rapid Response Team has been discussed. Patient/Family are encouraged to report perceived risks to care and to ask questions if they do not understand what they are told or what they should do.
[2023-03-28 21:37] LABS: Troponin I < 0.012 ng/mL (0.000-0.034)
[2023-03-28] MEDS: SODIUM CHLORIDE 0.9% IV 1,000 ML 75 ML IV CONT (21:55)
--- NOTE | 2023-03-28 22:09 | PC.NURSE ---
2130 received report from Romi. upon assessment patient resting in bed alert and oriented x4, VSS, denies pain. no s/s of distress.
[2023-03-28] MEDS: carvediloL 12.5 MG TABLET 37.5 MG PO (23:37)
[2023-03-29] VITALS (7 sets, daily range): BP systolic 134–143; BP diastolic 52–65; PULSE 68–82; RESP 16–18; TEMP 36.3–36.5; O2SAT 94–97
[2023-03-29] MEDS: ASPIRIN 325 MG TABLET PO (08:16)
[2023-03-29] MEDS: lisinopriL 20 MG TABLET PO (08:16)
[2023-03-29] MEDS: CALCIUM CARBONATE (OSCAL) 500 MG TABLET PO (08:16)
[2023-03-29] MEDS: OPTI-GEN TAB 1 TABLET PO (08:16)
[2023-03-29] MEDS: CHOLECALCIFEROL 400 UNITS TABLET (VIT D) PO (08:16)
[2023-03-29] MEDS: OMEGA 3 POLYUNSAT FATTY ACIDS 1 GM CAP PO (08:16)
[2023-03-29] MEDS: amLODIPine BESYLATE 5 MG TABLET PO (08:16)
[2023-03-29 09:23] LABS: Troponin I < 0.012 ng/mL (0.000-0.034)
[2023-03-29] MEDS: carvediloL 25 MG TABLET BY MOUTH (09:32)
[2023-03-29] MEDS: SODIUM CHLORIDE 0.9% IV 1,000 ML 75 ML IV CONT (11:12)
--- NOTE | 2023-03-29 15:19 | PM.DS ---
DS: Admitting Diagnosis Discharge Date 03/29/2023: Admitting Diagnosis Syncope and collapse DS: Discharge Diagnosis Discharge Diagnosis (1) Syncope and collapse: Code(s): R55 - Syncope and collapse Status: Acute (2) Hypertension: Qualifiers: Hypertension type: primary hypertension Qualified Code(s): I10 - Essential (primary) hypertension Code(s): I10 - Essential (primary) hypertension Status: Acute (3) Chronic kidney disease, stage 3: Code(s): N18.30 - Chronic kidney disease, stage 3 unspecified Status: Acute (4) Arthritis of left glenohumeral joint: Code(s): M19.012 - Primary osteoarthritis, left shoulder Status: Acute (5) Left shoulder pain: Code(s): M25.512 - Pain in left shoulder Status: Acute (6) Vitamin D deficiency: Code(s): E55.9 - Vitamin D deficiency, unspecified Status: Acute (7) Hyperlipidemia: Qualifiers: Hyperlipidemia type: other hyperlipidemia Qualified Code(s): E78.49 - Other hyperlipidemia Code(s): E78.5 - Hyperlipidemia, unspecified Status: Acute (8) Essential (primary) hypertension: Code(s): I10 - Essential (primary) hypertension Status: Acute (9) Impacted cerumen of right ear: Code(s): H61.21 - Impacted cerumen, right ear Status: Acute (10) Chronic kidney disease, stage III (moderate): Code(s): N18.3 - Chronic kidney disease, stage 3 (moderate) Status: Acute (11) Tinnitus of right ear: Code(s): H93.11 - Tinnitus, right ear Status: Acute (12) Tobacco abuse counseling: Code(s): Z71.6 - Tobacco abuse counseling Status: Acute (13) Nicotine dependence, cigarettes, with other nicotine-induced disorders: Code(s): F17.218 - Nicotine dependence, cigarettes, with other nicotine-induced disorders Status: Acute DS: Summary Hospital Course Reason for hospitalization: Patient admitted with syncopal episode yesterday Hospital Course: H&P: HPI History of Present Illness Date/Time: 03/28/23? 19:34 Chief Complaint: Syncope Narrative: This is an 87-year-old female with past medical history significant for hypertension, dyslipidemia, diverticulosis, DJD.? Patient was playing cards when she had a syncopal episode.? Patient has no recollection of event.? Preliminary workup has been essentially nonrevealing.? Patient has been her usual state of health up until this point denies any chest pain, palpitations, shortness of breath, cough, sputum production, no leg swelling, no PND, no orthopnea, no lightheadedness, no nausea no vomiting no abdominal pain no diarrhea, no fevers no rigors no chills.? Patient has been placed in observation for further evaluation management and treatment. 03/29/2023: Patient seen and evaluated bedside today. She feels better and wants to go home. This is her 2nd episode of syncope. She had 1 episode couple months ago when she was in [place], which prompted admission and complete syncopal workup. Cardiac enzymes were done x3 which are negative. She has been tele monitored since admission. Given her recurrence of symptoms, I ordered cardiology evaluation, who evaluated the patient and cleared her for discharge on Holter monitor. She was advised regarding safe ambulation and to follow up closely with PCP and Cardiology as outpatient. She had mild Micki with creatinine of 1.1 on admission, which resolved with IV hydration and her creatinine improved to 0.9 upon discharge. Detailed discharge directions delivered to the patient by myself and my nursing staff, who verbalizes understanding and is very happy and satisfied with the plan. Patient has been advised to continue all medications as prescribed and advised, and f/u with PCP within 1 week. Patient is stable from medical standpoint to be discharged. Total time spent during patient evaluation and assessment, discussion with the nurse/family, addressi
--- NOTE | 2023-03-29 17:04 | PM.CNCAR ---
Assessment and Plan Assessment and plan (1) Syncope and collapse: Code(s): R55 - Syncope and collapse Status: Acute Assessment and Plan: EKG sinus rhythm, first degree AV block, no ischemic changes. Troponins negative. Recent echocardiogram in January 2023 without significant abnormality. Tele thus far with significant amount of artifact but no significant arrhythmias. Orthostatic vital signs negative. Recommend 14 day event monitor as an outpatient. Can be discharged home from a cardiac standpoint. Recommendations/Plan discussed with Hospitalist. History of Present Illness History of Present Illness Consult date/time: 03/29/23 17:04 Requesting physician: Bob Dillard MD Consult reason: Other (Syncope) Reason For Visit: Syncope Narrative: Patient is an 87 year old female with hypertension who presented after a syncopal episode. Patient states she was playing cards, when she passed out. No lightheadedness/dizziness, palpitations prior to syncope. No chest pain. Unclear for how long she lost consciousness for. Feels fine now without any symptoms. EKG sinus rhythm, first degree AV block, no ischemic changes. Troponins negative. Recent echocardiogram in January 2023 without significant abnormality. Tele thus far with significant amount of artifact but no significant arrhythmias. Orthostatic vital signs negative. Review of Systems Review of Systems: All systems reviewed & are unremarkable except as noted in HPI and below (HPI) [facility] Past Medical History Medical History Diverticulosis Hyperlipidemia Hypertension Nicotine dependence, cigarettes, with other nicotine-induced disorders Tobacco abuse counseling Vitamin D deficiency Surgical History Surgical History History of colonoscopy History of hysterectomy Family History Family History Mother Family history of transient ischemic attacks Patient's mother is Father Family history of Parkinson's disease Patient's father is Family history of alcoholism Social History Social History Social History: Healthcare power of divorce attorney: Issa Meyers, lien. Code status: Full code. Smoking packs per day: 0.5 Smoking cigarettes per day: 10.0 Years smoked: 40 Smoking pack-years: 20.00 Smoking status: Current every day smoker Tobacco type: cigarettes Smokeless tobacco user: other Second hand tobacco smoke exposure: No Alcohol intake: never Substance use: never Substance use type: does not use Lack of Transportation: No Lack of Food: Never True Current Housing: I Have Housing Concerned About Future Housing: No Difficulty Paying Gas/Electric Bills: No Difficulty Paying for Meds: No Currently Unemployed: No Education: High School Diploma/GED Difficulty w/ Childcare or Family Care: No Spiritual care concerns: No Meds Home Medications and Allergies Home Medications Medication Instructions Recorded Confirmed Type aspirin 325 mg tablet 325 mg PO DAILY 06/20/19 03/28/23 History calcium carbonate 600 mg calcium 600 mg PO BID 06/21/19 03/28/23 History (1,500 mg) tablet (Calcium) glucosamine sulfate 500 mg tablet 500 mg PO BID 06/21/19 03/28/23 History (Glucosamine) omega-3 fatty acids 1,000 mg 1,000 mg PO BID 06/21/19 03/28/23 History capsule (Fish Oil Concentrate) cholecalciferol (vitamin D3) 10 10 mcg PO DAILY 08/19/21 03/28/23 History mcg (400 unit) capsule vit C 250 mg-vit E 90 mg-zinc 40 1 tablet PO BID 01/30/23 03/28/23 History mg-copper 1 [id number] capsule (PreserVision AREDS-2) amlodipine 5 mg tablet 5 mg PO DAILY 03/28/23 03/28/23 History carvedilol 25 mg tablet 37.5 mg PO QHS 03/28/23 03/28/23 History carvedilol 25 mg tablet (Coreg) 25 mg [facility]
== END 2023-03-29 16:30 | disposition home or self-care (01) ==
LOC: ANHED 19:50 → ANH2MED 20:20
PROVIDERS: Emergency Medicine; Admitting Provider Internal Medicine; Emergency Provider Physician Assistant; PCP Nurse Practitioner; Visit Provider Family Medicine
DX: R55 Syncope and collapse (principal); E78.49 Other hyperlipidemia; K57.90 Diverticulosis of intestine, part unspecified, without perforation or abscess without bleeding; M19.90 Unspecified osteoarthritis, unspecified site; I65.29 Occlusion and stenosis of unspecified carotid artery; I13.0 Hypertensive heart and chronic kidney disease with heart failure and stage 1 through stage 4 chronic kidney disease, or unspecified chronic kidney disease; N18.30 Chronic kidney disease, stage 3 unspecified; H93.11 Tinnitus, right ear; I35.8 Other nonrheumatic aortic valve disorders; H61.21 Impacted cerumen, right ear; M19.012 Primary osteoarthritis, left shoulder; R94.31 Abnormal electrocardiogram [ECG] [EKG]; F17.218 Nicotine dependence, cigarettes, with other nicotine-induced disorders; Z86.73 Personal history of transient ischemic attack (TIA), and cerebral infarction without residual deficits; E55.9 Vitamin D deficiency, unspecified; Z79.82 Long term (current) use of aspirin; Z79.899 Other long term (current) drug therapy
CPT/HCPCS: 36415; 70450; 71045; 80053; 81001; 84484; 85025; 93005; 96360; 96361; 99285; A9270; G0378; J7030